=== PATIENT | male | born 1950 | race Caucasian/White ===

== ENCOUNTER 2016-07-23 13:24 | Outpatient (RCR) | payer MEDICARE, OTHER ==
[~2016-07-23 13:24] MED LIST: ALDACTONE50 MG PO; AMOXICILLIN 8751 TAB PO; ASPIRIN E.C. 8181 MG PO; BETA GLUCAN PO; BYSTOLIC5 MG PO; CO Q-1010 M1; LEVAQUIN 5500 MG/TA1 PO; LIPITOR 10MG10 MG PO; PHARMASSURE CHE30 MG PO; PRINIVIL10 MG PO; PRINIVIL20 MG PO; PROBIOTIC ACID1 EAC3 PO; RT ALBUTER2.5 MG/0.5 IH; TAGAMET400 MG PO; VITAMIN D32000 IU PO; VTAMINC250TA; ZESTRIL 20MG TA20 MG PO; ZOCOR 10MG10 MG PO; [UNRECOGNIZED DRUG - OTHER] PO
== END 2016-07-27 | disposition still patient (30) ==
LOC: COL.CR
DX: I50.22 Chronic systolic (congestive) heart failure (principal)

== ENCOUNTER 2016-08-27 16:13 | Outpatient (RCR) | payer MEDICARE, OTHER | END 2016-09-03 08:05 | disposition home or self-care (01) | LOC: COL.CR 16:13 | DX: I50.22 Chronic systolic (congestive) heart failure (principal) ==

== ENCOUNTER 2018-11-04 20:57 | Emergency (ER) | payer MEDICARE, OTHER ==
[~2018-11-04] VITALS: Ht 188 cm; Wt 82.7 kg
[2018-11-04 21:11] VITALS: TEMP 97
[2018-11-04 21:34] LABS: BASO % 0.5 % (0.0-2.0); EOS # 0.1 (0.0-0.7); EOS % 1.9 % (0-4.0); GRAN # 3.7 (1.4-6.5); GRAN % 57.3 % (42.2-75.2); HEMATOCRIT 41.3 % (42.0-52.0); HEMOGLOBIN 13.9 g/dl (13.5-18.0); LYMPH % 30.4 % (20.0-51.0); MEAN CELL VOLUME 96 fl (80.0-100.0); MEAN CORPUSCULAR HEMOGLOBIN 32 pg (27.0-31.0); MEAN CORPUSCULAR HGB CONC 34 g/dl (33.0-37.0); MONO # 0.6 (0.1-0.6); MONO % 9.6 % (1.7-9.3); PLATELET COUNT 234 K/mm3 (130-400); RED BLOOD COUNT 4.31 M/mm3 (4.20-5.60); REDCELL DISTRIBUTION WIDTH-CV 12.4 % (11.5-14.5)
[2018-11-04 21:40] LABS: INR 1.1 (0.8-3.0); PROTHROMBIN TIME 12.6 SECONDS (9.7-12.8)
[2018-11-04 21:43] LABS: PARTIAL THROMBOPLASTIN TIME 30.3 SECONDS (26.0-37.0)
[2018-11-04 21:47] LABS: ALANINE AMINOTRANSFERASE 13 U/L (21-72); ALBUMIN 4.3 gm/dL (3.5-5.0); ALKALINE PHOSPHATASE 69 U/L (50-136); ANION GAP 15 mmol/L (7-16); AST,SGOT 26 U/L (15-37); BILIRUBIN,TOTAL 0.7 mg/dL (0.0-1.0); BLOOD UREA NITROGEN 19 mg/dL (9-20); CALCIUM 9.6 mg/dL (8.4-10.2); CARBON DIOXIDE 20 mmol/L (22-30); CHLORIDE 106 mmol/L (98-107); CREATININE, serum 1.42 (0.66-1.25); GLUCOSE 85 mg/dL (74-106); POTASSIUM 3.8 mmol/L (3.4-5.0); SODIUM 141 mmol/L (137-145); TOTAL PROTEIN 7.8 gm/dL (6.4-8.2)
[2018-11-04 21:59] LABS: TROPONIN-I < 0.012 ng/mL (0.000-0.035)
[2018-11-05 00:21] VITALS: BP 94/67; PULSE 113
== END 2018-11-05 00:25 | disposition short-term general hospital (02) ==
LOC: COL.ER 20:57
PROVIDERS: Emergency Medicine
DX: I48.91 Unspecified atrial fibrillation (principal); I11.0 Hypertensive heart disease with heart failure; I50.9 Heart failure, unspecified; E78.5 Hyperlipidemia, unspecified; I42.9 Cardiomyopathy, unspecified; Z79.82 Long term (current) use of aspirin; Z85.118 Personal history of other malignant neoplasm of bronchus and lung
CPT/HCPCS: J1650; J7030; J7060

== ENCOUNTER → 2020-06-10 | Outpatient (CLI) | payer MEDICARE, OTHER ==
[~2020-06-10] MED LIST changes: +COREG 6.256.25 MG/TA PO; +ELIQUIS 5MG PO; +ENTRESTO 49 MG1 EACH PO; +MASON NATURAL2000 IU PO; +PLAQUENIL 200M200 MG PO; +STROMECTOL3 MG PO; -VITAMIN D32000 IU PO; -VTAMINC250TA; +VTAMINC250TA PO; +ZITHROMAX 250M250 MG PO
== END ==
LOC: COL.VAS 13:12
DX: I35.1 Nonrheumatic aortic (valve) insufficiency (principal); I42.9 Cardiomyopathy, unspecified; I50.22 Chronic systolic (congestive) heart failure

== ENCOUNTER 2020-09-06 16:04 | Emergency (ER) | payer MEDICARE, OTHER ==
[~2020-09-06] VITALS: Ht 190.5 cm; Wt 76.4 kg
[~2020-09-06 16:04] MED LIST changes: -COREG 6.256.25 MG/TA PO; -ELIQUIS 5MG PO; -ENTRESTO 49 MG1 EACH PO; -PLAQUENIL 200M200 MG PO; -STROMECTOL3 MG PO; -ZITHROMAX 250M250 MG PO
[2020-09-06 16:20] VITALS: TEMP 98.1
[2020-09-06 18:28] LABS: COLLECTION METHOD CLEAN CATCH
[2020-09-06 18:36] LABS: BASO % 0.3 % (0.0-2.0); EOS % 0.3 % (0-4.0); GRAN # 4.8 (1.4-6.5); GRAN % 78.1 % (42.2-75.2); HEMOGLOBIN 10.5 g/dl (13.5-18.0); LYMPH # 0.8 (1.2-3.4); LYMPH % 13.6 % (20.0-51.0); MEAN CELL VOLUME 102 fl (80.0-100.0); MEAN CORPUSCULAR HEMOGLOBIN 33 pg (27.0-31.0); MEAN CORPUSCULAR HGB CONC 33 g/dl (33.0-37.0); MEAN PLATELET VOLUME 9.3 fl (7.4-10.4); MONO # 0.5 (0.1-0.6); MONO % 7.4 % (1.7-9.3); PLATELET COUNT 195 K/mm3 (130-400); RED BLOOD COUNT 3.15 M/mm3 (4.20-5.60); REDCELL DISTRIBUTION WIDTH-CV 13.1 % (11.5-14.5)
[2020-09-06 18:37] LABS: PH 7 (5-8); SQUAMOUS EPITHELIAL 0-2 /hpf; URINE APPEARANCE Clear; URINE BACTERIA None Seen /hpf; URINE BILIRUBIN Negative (NEGATIVE); URINE BLOOD Negative (NEGATIVE); URINE COLOR Straw; URINE GLUCOSE Negative (NEGATIVE); URINE KETONE Negative (NEGATIVE); URINE LEUKOCYTE ESTERASE Negative (NEGATIVE); URINE NITRATE Negative (NEGATIVE); URINE PROTEIN(semi-quant) Negative (NEGATIVE); URINE RBC 0-2 /hpf; URINE UROBILINOGEN Negative (NEGATIVE)
[2020-09-06 19:06] LABS: ALBUMIN 3.8 gm/dL (3.5-5.0); BILIRUBIN,TOTAL 0.2 mg/dL (0.0-1.0); CALCIUM 9.2 mg/dL (8.4-10.2); CREATININE, serum 1.26 (0.66-1.25); POTASSIUM 4.2 mmol/L (3.4-5.0)
[2020-09-06 20:04] VITALS: BP 135/69; PULSE 72
== END 2020-09-06 20:14 | disposition home or self-care (01) ==
LOC: COL.ER 16:04
PROVIDERS: Physician Assistant
DX: D64.9 Anemia, unspecified (principal); C34.90 Malignant neoplasm of unspecified part of unspecified bronchus or lung; I11.0 Hypertensive heart disease with heart failure; I50.9 Heart failure, unspecified; E78.5 Hyperlipidemia, unspecified; Z79.899 Other long term (current) drug therapy
CPT/HCPCS: J7030

== ENCOUNTER 2020-12-04 13:30 | Outpatient (CLI) | payer MEDICARE, OTHER ==
[~2020-12-04] VITALS: Ht 190.5 cm; Wt 77.0 kg
[2020-12-04 13:13] VITALS: BP 91/50; PULSE 73; TEMP 98.6
[2020-12-04 13:45] VITALS: BP 87/52; PULSE 66
[2020-12-04] MEDS ORDERED: COREG 6.256.25 MG/TA PO (13:55)
[2020-12-04] MEDS ORDERED: ELIQUIS 5MG PO (13:56)
[2020-12-04] MEDS ORDERED: STROMECTOL3 MG PO (13:57)
[2020-12-04] MEDS ORDERED: ENTRESTO 49 MG1 EACH PO (13:58)
[2020-12-04] MEDS ORDERED: PLAQUENIL 200M200 MG PO (13:59)
[2020-12-04] MEDS ORDERED: ZITHROMAX 250M250 MG PO (13:59)
[2020-12-04 14:00] VITALS: BP 90/53; PULSE 69
[2020-12-04 14:15] VITALS: BP 100/62; PULSE 67
[2020-12-04 14:30] VITALS: BP 103/65; PULSE 67
[2020-12-04 14:45] VITALS: BP 103/62; PULSE 62
== END 2020-12-04 15:26 | disposition home or self-care (01) ==
LOC: EUO 13:30
DX: U07.1 COVID-19 (principal)
CPT/HCPCS: Q0244

== ENCOUNTER → 2021-02-10 | Outpatient (CLI) | payer MEDICARE, OTHER ==
[~2021-02-10] MED LIST changes: +COREG 6.256.25 MG/TA PO; +ELIQUIS 5MG PO; +ENTRESTO 49 MG1 EACH PO; +PLAQUENIL 200M200 MG PO; +STROMECTOL3 MG PO; +ZITHROMAX 250M250 MG PO
== END ==
LOC: COL.VAS 13:59
DX: I08.0 Rheumatic disorders of both mitral and aortic valves (principal); I50.22 Chronic systolic (congestive) heart failure

== ENCOUNTER 2021-08-27 20:46 | Emergency (ER) | payer MEDICARE, OTHER ==
[~2021-08-27] VITALS: Ht 190.5 cm; Wt 77.3 kg
[2021-08-27 23:00] VITALS: BP 121/78; PULSE 82; TEMP 97.4
== END 2021-08-27 23:00 | disposition home or self-care (01) ==
LOC: COL.ER 20:46
DX: S20.214A Contusion of middle front wall of thorax, initial encounter (principal); Z28.310 Unvaccinated for COVID-19; W28.XXXA Contact with powered lawn mower, initial encounter; Y92.828 Other wilderness area as the place of occurrence of the external cause

== ENCOUNTER → 2021-11-02 | Outpatient (CLI) | payer MEDICARE, OTHER | LOC: COL.RAD 11:13 | DX: C34.92 Malignant neoplasm of unspecified part of left bronchus or lung (principal); C61 Malignant neoplasm of prostate; Z92.21 Personal history of antineoplastic chemotherapy | CPT/HCPCS: A9575 ==

== ENCOUNTER → 2021-12-16 | Outpatient (RCR) | payer MEDICARE, OTHER | END | disposition home or self-care (01) | LOC: WSST | DX: J38.7 Other diseases of larynx (principal) ==